=== PATIENT | female | born 1940 | race Caucasian/White ===

== ENCOUNTER 2018-05-23 18:10 | Emergency (ER) | payer OTHER ==
[~2018-05-23] VITALS: Ht 157.5 cm; Wt 74.6 kg
[~2018-05-23 18:10] MED LIST: ADVAIR 250/501 DISK IH; AZOR 10/40 M1 TABLET PO; CALCIUM 500 +1 EAC4 PO; CILOSTAZOL100 MG PO; DAILY MULTIPLE1 EACH PO; GLYBURIDE5 MG PO; HUMALOG100 UNIT/2 SC; IMODIUM MS REL1 EACH PO; JANUVIA100 MG PO; LEVAQUIN500 MG PO; LEVOTHYROXINE50 MCG PO; LO-DOSE ASPIRIN81 M1 PO; METFORMIN HCL500 MG PO; MICRONASE5 MG PO; OMEGA-31000 M1 PO; PREDNISONE20 MG PO; TESSALON PERLE100 MG PO
[2018-05-23 18:59] LABS: APPEARANCE CLEAR ((CLEAR)); BILIRUBIN NEGATIVE; BLOOD NEGATIVE; COLOR STRAW ((YELLOW)); GLUCOSE (STRIP) NEGATIVE; KETONES NEGATIVE; LEUKOCYTES NEGATIVE; NITRITE NEGATIVE; PROTEIN (STRIP) 30; UROBILINOGEN 0.2 MG/DL (0.2-1.0)
[2018-05-23 19:03] LABS: HEMOGLOBIN 13.1 G/DL (11.9-15.5); MCH 27.7 PG (29.0-34.0); MCV 86.7 FL (83-99); PLATELET COUNT 300 K/uL (156-360); RBC DIS.WIDTH-CV 13.9 % (11.8-14.6); RBC DIS.WIDTH-SD 44.1 % (39-53); RED BLOOD COUNT 4.73 M/uL (3.80-5.20); WHITE BLOOD COUNT 8.7 K/uL (4.1-10.2)
[2018-05-23 19:13] LABS: CHLORIDE 103 mEq/L (99-109); POTASSIUM 4.2 mEq/L (3.7-5.4); SODIUM 142 mEq/L (136-147)
[2018-05-23 19:15] LABS: GLUCOSE 117 mg/dL (70-99)
[2018-05-23 19:19] LABS: CREATININE 0.9 mg/dL (0.6-1.3); GFR ESTIMATE (CALCULATED) > 59 mL/min/
[2018-05-23 19:20] LABS: UREA NITROGEN (BUN) 19 mg/dL (9-23)
[2018-05-23 19:26] LABS: TROP-I INTERPRETATION NEGATIVE; TROPONIN-I < 0.01 ng/mL (0.0-0.30)
[2018-05-23 20:48] VITALS: BP 211/114
== END 2018-05-23 20:58 | disposition home or self-care (01) ==
LOC: EME 18:10
PROVIDERS: Nurse Practitioner Family
DX: I10 Essential (primary) hypertension (principal); R51 Headache; E11.9 Type 2 diabetes mellitus without complications; Z79.4 Long term (current) use of insulin; Z79.82 Long term (current) use of aspirin; Z87.891 Personal history of nicotine dependence; Z88.0 Allergy status to penicillin; Z88.2 Allergy status to sulfonamides; Z88.5 Allergy status to narcotic agent
CPT/HCPCS: 70450; 80048; 81003; 84484; 85027; 93005; 99281; 99285